=== PATIENT | female | born 1965 | race Caucasian/White ===

== ENCOUNTER 2021-10-19 12:45 | Outpatient (CLI) | payer OTHER ==
[~2021-10-19 12:45] MED LIST: ANTIVERT25 M1 PO; ZEBUTAL CAPSULE1 CAP PO
== END 2021-10-19 12:55 | disposition home or self-care (01) ==
LOC: LAB 12:45
PROVIDERS: ATTEND Obstetrics & Gynecology
DX: Z20.828 Contact with and (suspected) exposure to other viral communicable diseases (principal); Z20.818 Contact with and (suspected) exposure to other bacterial communicable diseases